=== PATIENT | male | born 1940 | race Caucasian/White ===

== ENCOUNTER 2017-03-05 10:46 | Emergency (ER) | payer MEDICARE ==
[2017-03-05 11:17] VITALS: BP 145/78
--- NOTE | 2017-03-05 11:35 | UC ---
Skin Complaint HPI - History of Current Complaint Chief Complaint: UCSkin Time Seen by Provider: 03/05/17 11:25 Stated Complaint: TICK BITE - Allergy/Home Medications Allergies/Adverse Reactions: Allergies Allergy/AdvReac Type Severity Reaction Status Date / Time Penicillin V AdvReac Mild GI Upset Verified 03/05/17 11:17 Home Medications: Home Medications Lansoprazole [Prevacid] 30 mg PO BEDTIME 03/05/17 [History Confirmed 03/05/17] PMH/Surg Hx/FS Hx/Imm Hx - Surgical History Surgical History: Yes Surgery Procedure, Year, and Place: right hip replacement x2 (was a recall of hardware) - Social History Alcohol Use: None Substance Use Type: None Smoking Status (MU): Never Smoked Tobacco Physical Exam Vital Signs: Initial Vital Signs Temp 98.1 F 03/05/17 11:15 Pulse 72 03/05/17 11:15 Resp 14 03/05/17 11:15 BP 145/78 03/05/17 11:15 Course/Dx - Course Course Of Treatment: hx obtained, exam performed ,meds reviewed, educated on tick bites and lyme Discharge - Discharge Plan Condition: Stable Disposition: HOME Prescriptions: DOXYcycline CAP(*) [DOXYcycline 100MG CAP(*)] 200 mg PO DAILY #2 cap predniSONE TAB* [Deltasone TAB*] 40 mg PO DAILY #10 tab Patient Education Materials: Tick Bite (ED) Referrals: Cosme Soria MD [Primary Care Provider] - Additional Instructions: 1. take prednisone for the next 5 days 2. Take the dose of doxycyline with your lunch 3. FOllow up with any sign of lyme disease. or infection at bite site
== END 2017-03-05 11:42 | disposition home or self-care (01) ==
LOC: UCCORT 10:46
DX: T14.8XXA Other injury of unspecified body region, initial encounter (principal); W57.XXXA Bitten or stung by nonvenomous insect and other nonvenomous arthropods, initial encounter; Z88.0 Allergy status to penicillin; Z96.641 Presence of right artificial hip joint
CPT/HCPCS: 99202; G0463